=== PATIENT | male | born 1980 | race Caucasian/White ===

== ENCOUNTER 2019-05-02 21:32 | Emergency (ER) | payer SELFPAY ==
[~2019-05-02] VITALS: Ht 182.9 cm; Wt 167.4 kg
[~2019-05-02 21:32] MED LIST: COL100 PO; VICODIN ES1 TAB PO
[2019-05-02 22:08] VITALS: BP 155/96; Ht 182.9 cm; Wt 167.4 kg
== END 2019-05-02 23:44 | disposition home or self-care (01) ==
LOC: ED 21:32
DX: L03.116 Cellulitis of left lower limb (principal); K21.9 Gastro-esophageal reflux disease without esophagitis; Z98.890 Other specified postprocedural states
CPT/HCPCS: J0690